=== PATIENT | male | born 1975 | race Caucasian/White ===

== ENCOUNTER 2018-03-05 18:27 | Emergency (ER) | payer OTHER, BC ==
[2018-03-05] MEDS: HYDROCODONE/APAP (10/325) TAB PO (20:48)
[2018-03-05] MEDS: DIPHTH/TET/ACEL PERTUSS (ADULT) 0.5 ML VIAL IM* (20:53)
[2018-03-05] MEDS: LIDOCAINE 1% (MDV) 20 ML INJ SC (21:01)
== END 2018-03-05 23:16 | disposition home or self-care (01) ==
LOC: FTE 18:27
DX: S81.812A Laceration without foreign body, left lower leg, initial encounter (principal); M54.5 Low back pain; W17.89XA Other fall from one level to another, initial encounter; Y92.89 Other specified places as the place of occurrence of the external cause; Z23 Encounter for immunization
CPT/HCPCS: 12001; 72100; 73590; 90471; 90715; 99284-25